=== PATIENT | female | born 1985 | race Caucasian/White ===

== ENCOUNTER 2022-11-29 04:37 | Emergency (ER) | payer MEDICAID, OTHER ==
[~2022-11-29] VITALS: Ht 165.1 cm; Wt 63.0 kg
[2022-11-29 04:43] VITALS: BP 128/76
[2022-11-29] MEDS ORDERED: KETOROLAC 60MG/2ML VIAL IM ONE (05:15)
[2022-11-29] MEDS ORDERED: LIDOCAINE 5% PATCH TOP SCH (05:15)
[2022-11-29] MEDS ORDERED: IBUP-2029 MT (05:41)
[2022-11-29] MEDS ORDERED: LIDO700A15 TP (05:41)
== END 2022-11-29 06:10 | disposition home or self-care (01) ==
LOC: ER 04:37
DX: M25.512 Pain in left shoulder (principal)
CPT/HCPCS: 73030; 81025; 96372; 99283; J1885